=== PATIENT | male | born 1970 | race Caucasian/White ===

== ENCOUNTER → 2016-10-14 | Outpatient (CLI) | payer OTHER ==
[~2016-10-14] MED LIST: LASIX40 MG PO; POTASSIUM CHLO20 ME3 PO
== END | disposition home or self-care (01) ==
LOC: CARD 02:32
DX: Z01.818 Encounter for other preprocedural examination (principal); E66.01 Morbid (severe) obesity due to excess calories; E06.0 Acute thyroiditis; Z82.49 Family history of ischemic heart disease and other diseases of the circulatory system; R94.31 Abnormal electrocardiogram [ECG] [EKG]

== ENCOUNTER → 2017-08-17 | Outpatient (CLI) | payer OTHER ==
--- NOTE | ~2017-08-17 | HM ---
[place], [place] HOLTER MONITOR REPORT NAME: MEREDITH ALMODOVAR UNIT #: [id number] ROOM: DOCTOR: [facility],THADDEUS BIRTHDATE: [birth year] DOS: 08/18/2017 FINDINGS: 1. Sinus. 2. No extreme tachy-bradycardia. 3. Frequent PVCs. 4. Occasionally ____. 5. Ventricular bigeminy and ventricular trigeminy. No sustained/nonsustained ventricular tachycardia noted. No conduction abnormalities noted. No extreme bradycardia noted. Fairly benign symptoms persist. Consideration may be given adjusting the beta-blocking agent. And to avoid the stimulants alcohol, tobacco, caffeine, and chocolates. THADDEUS VAZQUEZ MD CM:HOLTER:HOLTER MONITOR REPORT [id number] THADDEUS VAZQUEZ MD [facility]
[2017-08-17 09:56] LABS: BASO # 0.1 10*3/uL (0.0-0.1); BASO % 0.8 % (0.0-1.0); EOS # 0.3 10*3/uL (0.0-0.4); HEMATOCRIT 49.4 % (42.0-52.0); HEMOGLOBIN 16.7 g/dl (14.0-18.0); MEAN CELL VOLUME 92.7 fl (80.0-94.0); MEAN CORPUSCULAR HGB 31.3 pg (27.0-31.0); MEAN CORPUSCULAR HGB CONC 33.8 g/dl (33.0-37.0); MEAN PLATELET VOLUME 10.1 fl (9.6-12.3); MONO # 0.7 10*3/uL (0.1-1.0); MONO % 7.1 % (3.0-9.0); NEUT # 6.1 10*3/uL (2.3-7.9); NEUT % 59.7 % (47.0-73.0); PLATELET COUNT AUTOMATED 245 10*3/uL (130-400); RED BLOOD COUNT 5.33 10*6/uL (4.50-5.90); RED CELL DISTRI WIDTH 14.1 % (0-14.5); WHITE BLOOD COUNT 10.3 10*3/uL (4.8-10.8)
[2017-08-17 10:28] LABS: BUN 11 mg/dl (7-24); CHLORIDE 101 mmol/L (98-107); CREATININE 1.07 mg/dL (0.70-1.30); POTASSIUM 3.7 mmol/L (3.5-5.1); SODIUM 136 mmol/L (136-145)
== END | disposition home or self-care (01) ==
LOC: CARD 08-15 09:30 → LAB 09:03 → CARD 09:30
PROVIDERS: Internal Medicine Cardiovascular Disease
DX: R00.1 Bradycardia, unspecified (principal)

== ENCOUNTER 2021-05-01 07:28 | Emergency (ER) | payer OTHER ==
[~2021-05-01] VITALS: Ht 180.3 cm; Wt 154.2 kg
[2021-05-01 08:21] VITALS: BP 160/86
[2021-05-01 08:54] LABS: BASO % 0.5 % (0.0-1.0); EOS % 0.3 % (1.0-4.0); HEMATOCRIT 43.6 % (42.0-52.0); LYMPH # 0.8 10*3/uL (1.3-4.4); LYMPH % 12.1 % (27.0-41.0); MEAN CELL VOLUME 87.9 fl (80.0-94.0); MEAN CORPUSCULAR HGB 30.2 pg (27.0-31.0); MEAN CORPUSCULAR HGB CONC 34.4 g/dl (33.0-37.0); MONO # 0.8 10*3/uL (0.1-1.0); MONO % 12.5 % (3.0-9.0); NEUT # 4.9 10*3/uL (2.3-7.9); PLATELET COUNT AUTOMATED 200 10*3/uL (130-400); RED BLOOD COUNT 4.96 10*6/uL (4.50-5.90); RED CELL DISTRI WIDTH 13.9 % (0-14.5); WHITE BLOOD COUNT 6.6 10*3/uL (4.8-10.8)
[2021-05-01 09:10] LABS: ALBUMIN 3.2 gm/dl (3.1-4.5); ALKALINE PHOSPHATASE 93 U/L (45-117); BUN 7 mg/dl (7-24); CHLORIDE 104 mmol/L (98-107); CREATININE 0.75 mg/dL (0.70-1.30); LIPASE 30 U/L (73-393); POTASSIUM 3.5 mmol/L (3.5-5.1); SGOT/AST 21 IU/L (3-35); SGPT/ALT 26 U/L (12-78); SODIUM 137 mmol/L (136-145); TOTAL PROTEIN 7.8 gm/dL (6.4-8.2)
[2021-05-01 09:15] LABS: TROPONIN I < 0.015 ng/ml (<0.045)
[2021-05-01] MEDS ORDERED: TYLENOL EXTRA500 MG PO (12:09)
[2021-05-01] MEDS ORDERED: CYCLOBENZAPRINE5 M3 PO (12:09)
== END 2021-05-01 12:16 | disposition home or self-care (01) ==
LOC: ED 07:28
PROVIDERS: Internal Medicine
DX: R07.9 Chest pain, unspecified (principal)

== ENCOUNTER → 2021-08-25 | Outpatient (CLI) | payer OTHER ==
[~2021-08-25] MED LIST changes: +CYCLOBENZAPRINE5 M3 PO; +TYLENOL EXTRA500 MG PO
== END | disposition home or self-care (01) ==
LOC: RAD 10:32
PROVIDERS: ATTEND Nurse Practitioner Family
DX: I44.4 Left anterior fascicular block (principal); E66.9 Obesity, unspecified; I10 Essential (primary) hypertension; R60.9 Edema, unspecified; Z82.49 Family history of ischemic heart disease and other diseases of the circulatory system

== ENCOUNTER → 2021-09-10 | Outpatient (CLI) | payer OTHER | END | disposition home or self-care (01) | LOC: CT 02:18 | PROVIDERS: ATTEND Nurse Practitioner Family | DX: J43.9 Emphysema, unspecified (principal); R91.8 Other nonspecific abnormal finding of lung field; R94.31 Abnormal electrocardiogram [ECG] [EKG]; R50.9 Fever, unspecified; R93.89 Abnormal findings on diagnostic imaging of other specified body structures; I25.10 Atherosclerotic heart disease of native coronary artery without angina pectoris; I11.9 Hypertensive heart disease without heart failure ==

== ENCOUNTER → 2021-09-28 | Outpatient (CLI) | payer OTHER | END | disposition home or self-care (01) | LOC: CARD 00:06 | PROVIDERS: ATTEND Internal Medicine Cardiovascular Disease | DX: I49.3 Ventricular premature depolarization (principal); R06.00 Dyspnea, unspecified ==

== ENCOUNTER 2022-06-02 15:02 | Emergency (ER) | payer OTHER ==
[~2022-06-02] VITALS: Ht 180.3 cm; Wt 197.8 kg
[2022-06-02 15:27] VITALS: BP 169/68
[2022-06-02 16:14] LABS: BASO # 0.1 10*3/uL (0.0-0.1); BASO % 0.5 % (0.0-1.0); EOS # 0.1 10*3/uL (0.0-0.4); EOS % 0.7 % (1.0-4.0); HEMATOCRIT 42.9 % (42.0-52.0); LYMPH # 1.2 10*3/uL (1.3-4.4); LYMPH % 11.5 % (27.0-41.0); MEAN CELL VOLUME 91.1 fl (80.0-94.0); MEAN CORPUSCULAR HGB 30.8 pg (27.0-31.0); MEAN CORPUSCULAR HGB CONC 33.8 g/dl (33.0-37.0); MONO # 1.1 10*3/uL (0.1-1.0); MONO % 10.1 % (3.0-9.0); NEUT # 8.2 10*3/uL (2.3-7.9); NEUT % 76.9 % (47.0-73.0); PLATELET COUNT AUTOMATED 272 10*3/uL (130-400); RED BLOOD COUNT 4.71 10*6/uL (4.50-5.90); RED CELL DISTRI WIDTH 14.6 % (0-14.5); WHITE BLOOD COUNT 10.7 10*3/uL (4.8-10.8)
[2022-06-02 16:32] LABS: ALKALINE PHOSPHATASE 76 U/L (46-116); BUN 9 mg/dl (9-23); CHLORIDE 104 mmol/L (98-107); CREATININE 0.64 mg/dL (0.70-1.30); SODIUM 135 mmol/L (136-145); TOTAL PROTEIN 7.4 gm/dL (6.0-8.0); URIC ACID 7.3 mg/dL (3.1-9.2)
[2022-06-02 16:52] LABS: SGPT/ALT 15 U/L (10-49)
[2022-06-02] MEDS ORDERED: HYDROCODONE-AC1 EAC1 PO (21:58)
== END 2022-06-02 22:12 | disposition home or self-care (01) ==
LOC: ED 15:02
PROVIDERS: Nurse Practitioner Family
DX: M25.461 Effusion, right knee (principal); R60.0 Localized edema

== ENCOUNTER → 2023-04-11 | Outpatient (CLI) | payer OTHER ==
[~2023-04-11] MED LIST changes: +DIGOXIN125 MCG PO; +ELIQUIS5 M1 PO; +HYDROCODONE-AC1 EAC1 PO; +KLOR-CON M2020 ME1 PO; +LISINOPRIL5 MG PO; +METOPROLOL TART50 M1 PO; +PAROXETINE HCL20 MG PO; +PREDNISONE10 MG PO; +SYMB160 INH; +VENT7GM INH; +VITAMIN D350 MCG PO; +Vitamin D (50,000 UN PO
[2023-04-11 15:10] LABS: BUN 15 mg/dl (9-23); CHLORIDE 105 mmol/L (98-107); POTASSIUM 3.2 mmol/L (3.4-5.1); URIC ACID 4.6 mg/dL (3.7-9.2)
== END | disposition home or self-care (01) ==
LOC: RESCLI 13:09
PROVIDERS: Internal Medicine; ATTEND Internal Medicine
DX: I50.20 Unspecified systolic (congestive) heart failure (principal); M1A.0710 Idiopathic chronic gout, right ankle and foot, without tophus (tophi)

== ENCOUNTER 2023-11-07 06:23 | Inpatient (IN) | payer OTHER ==
[~2023-11-07] VITALS: Ht 180.3 cm; Wt 194.6 kg
[2023-11-07] VITALS (8 sets, daily range): BP systolic 114–146; BP diastolic 65–101
[2023-11-07] MEDS ORDERED: BUMETANIDE 1 MG/4 ML VIAL IV ONE (06:45)
[2023-11-07] MEDS ORDERED: methylPREDNISolone sod succ 125 MG VIAL IV ONE (06:45)
[2023-11-07] MEDS ORDERED: Diltiazem Hydrochloride 25 MG/5 ML VIAL IV ONE (06:45)
[2023-11-07 06:49] LABS: BASO # 0.1 10*3/uL (0.0-0.1); BASO % 0.7 % (0.0-1.0); EOS # 0.1 10*3/uL (0.0-0.4); EOS % 1.2 % (1.0-4.0); HEMATOCRIT 39.7 % (42.0-52.0); LYMPH # 0.8 10*3/uL (1.3-4.4); LYMPH % 11.1 % (27.0-41.0); MEAN CELL VOLUME 95.9 fl (80.0-94.0); MEAN CORPUSCULAR HGB 31.9 pg (27.0-31.0); MEAN CORPUSCULAR HGB CONC 33.2 g/dl (33.0-37.0); MEAN PLATELET VOLUME 9.4 fl (9.6-12.3); MONO # 0.6 10*3/uL (0.1-1.0); MONO % 7.3 % (3.0-9.0); NEUT % 79.3 % (47.0-73.0); PLATELET COUNT AUTOMATED 166 10*3/uL (130-400); RED BLOOD COUNT 4.14 10*6/uL (4.50-5.90); RED CELL DISTRI WIDTH 18.2 % (0-14.5); WHITE BLOOD COUNT 7.5 10*3/uL (4.8-10.8)
[2023-11-07 07:16] LABS: ALKALINE PHOSPHATASE 98 U/L (46-116); BUN 5 mg/dl (9-23); CHLORIDE 101 mmol/L (98-107); POTASSIUM 2.9 mmol/L (3.4-5.1); SGPT/ALT 31 U/L (5-49); TOTAL PROTEIN 6.4 gm/dL (6.0-8.0)
[2023-11-07] MEDS ORDERED: Diltiazem Hydrochloride 125 ML IV SCH (08:00)
[2023-11-07] MEDS ORDERED: MAGNESIUM SULFATE 100 ML IV ONE (08:15)
[2023-11-07] MEDS ORDERED: POTASSIUM CHLORIDE IN WATER 100 ML IV SCH (09:00)
[2023-11-07] MEDS ORDERED: ACETAMINOPHEN 650 MG SUPP R PRN (10:35)
[2023-11-07] MEDS ORDERED: BISACODYL 10 MG SUPP R PRN (10:35)
[2023-11-07] MEDS ORDERED: Magnesium Hydroxide 30 ML UDC PO PRN (10:35)
[2023-11-07] MEDS ORDERED: Ondansetron Hydrochloride 4 MG/2 ML VIAL IV PRN (10:35)
[2023-11-07] MEDS ORDERED: ACETAMINOPHEN 325 MG TAB PO PRN (10:35)
[2023-11-07] MEDS ORDERED: BISACODYL 5 MG TAB PO PRN (10:35)
[2023-11-07] MEDS ORDERED: ALDACTONE25 MG PO (11:04)
[2023-11-07] MEDS ORDERED: Albuterol Sulf/Ipratropium 3 ML VIAL NEB PRN (11:25)
[2023-11-07] MEDS ORDERED: Albuterol Sulfate 2.5 MG/3 ML VIAL NEB SCH (11:40)
[2023-11-07] MEDS ORDERED: BUDESONIDE 0.5 MG AMP NEB SCH (11:40)
[2023-11-07] MEDS ORDERED: DIGOXIN 125 MCG TAB PO SCH (14:00)
[2023-11-07] MEDS ORDERED: FUROSEMIDE 40 MG/4 ML VIAL IV SCH (18:00)
[2023-11-07] MEDS ORDERED: APIXABAN 5 MG TAB PO SCH (22:00)
[2023-11-07] MEDS ORDERED: Budesonide/Formoterol Fumarate 160/4.5 inhaler INH SCH (22:00)
[2023-11-07] MEDS ORDERED: Metoprolol Tartrate 50 MG TAB PO SCH (22:00)
[2023-11-07] MEDS ORDERED: Nicotine 21 MG PATCH T SCH (22:40)
[2023-11-08] VITALS (9 sets, daily range): BP systolic 113–134; BP diastolic 74–90
[2023-11-08 06:28] LABS: HEMATOCRIT 37.7 % (42.0-52.0); LYMPH # 0.7 10*3/uL (1.3-4.4); MEAN CELL VOLUME 98.4 fl (80.0-94.0); MEAN CORPUSCULAR HGB 31.6 pg (27.0-31.0); MEAN CORPUSCULAR HGB CONC 32.1 g/dl (33.0-37.0); MEAN PLATELET VOLUME 9.4 fl (9.6-12.3); MONO # 0.9 10*3/uL (0.1-1.0); MONO % 9.4 % (3.0-9.0); NEUT # 7.8 10*3/uL (2.3-7.9); NEUT % 83.1 % (47.0-73.0); NUCLEATED RED BLOOD CELL 0.4 % (0.0-0.0); PLATELET COUNT AUTOMATED 150 10*3/uL (130-400); RED BLOOD COUNT 3.83 10*6/uL (4.50-5.90); RED CELL DISTRI WIDTH 18.8 % (0-14.5); WHITE BLOOD COUNT 9.4 10*3/uL (4.8-10.8)
[2023-11-08 07:16] LABS: ALKALINE PHOSPHATASE 97 U/L (46-116); BUN 12 mg/dl (9-23); CHLORIDE 95 mmol/L (98-107); CHOLESTEROL 129 mg/dL (<200); LDL CHOLESTEROL 77 mg/dL (9-159); POTASSIUM 3.6 mmol/L (3.4-5.1); SGPT/ALT 28 U/L (5-49); TOTAL PROTEIN 6.9 gm/dL (6.0-8.0); TRIGLYCERIDES 71 mg/dl (<150)
[2023-11-08] MEDS ORDERED: LISINOPRIL 5 MG TAB PO SCH (10:00)
[2023-11-08] MEDS ORDERED: GUAIFENESIN 600 MG TAB ER PO SCH (10:00)
[2023-11-08] MEDS ORDERED: Cholecalciferol 2,000 UNIT TABLET (50 MCG) PO SCH (10:00)
[2023-11-08] MEDS ORDERED: SPIRONOLACTONE 25 MG TAB PO SCH (10:00)
[2023-11-08] MEDS ORDERED: EMPAGLIFLOZIN 10 MG TABLET PO SCH (10:00)
[2023-11-08] MEDS ORDERED: PERFLUTREN PROTEIN-A MICROSPHR 3 ML VIAL IV ONE (14:08)
[2023-11-08] MEDS ORDERED: Melatonin 5 MG TABLET PO PRN (20:55)
[2023-11-09] VITALS: BP 115/62
[2023-11-09 05:08] VITALS: BP 109/66
[2023-11-09 06:52] LABS: BASO % 0.3 % (0.0-1.0); EOS # 0.1 10*3/uL (0.0-0.4); EOS % 0.9 % (1.0-4.0); HEMATOCRIT 38.5 % (42.0-52.0); LYMPH # 1.5 10*3/uL (1.3-4.4); LYMPH % 18.8 % (27.0-41.0); MEAN CELL VOLUME 98.5 fl (80.0-94.0); MEAN CORPUSCULAR HGB CONC 32.5 g/dl (33.0-37.0); MEAN PLATELET VOLUME 9.8 fl (9.6-12.3); MONO # 0.6 10*3/uL (0.1-1.0); MONO % 8.1 % (3.0-9.0); NEUT # 5.6 10*3/uL (2.3-7.9); NEUT % 71.4 % (47.0-73.0); NUCLEATED RED BLOOD CELL 0.4 % (0.0-0.0); PLATELET COUNT AUTOMATED 139 10*3/uL (130-400); RED BLOOD COUNT 3.91 10*6/uL (4.50-5.90); RED CELL DISTRI WIDTH 19.3 % (0-14.5); WHITE BLOOD COUNT 7.9 10*3/uL (4.8-10.8)
[2023-11-09 07:26] LABS: ALKALINE PHOSPHATASE 89 U/L (46-116); BUN 16 mg/dl (9-23); CHLORIDE 96 mmol/L (98-107); POTASSIUM 3.5 mmol/L (3.4-5.1); SGPT/ALT 38 U/L (5-49); TOTAL PROTEIN 6.8 gm/dL (6.0-8.0)
[2023-11-09 08:00] VITALS: BP 103/59
[2023-11-09] MEDS ORDERED: POTASSIUM CHLORIDE 20 MEQ TAB PO SCH (10:00)
[2023-11-09 12:00] VITALS: BP 116/71
[2023-11-09 16:00] VITALS: BP 105/83
[2023-11-09 20:00] VITALS: BP 105/66
[2023-11-09] MEDS ORDERED: methylPREDNISolone sod succ 40 MG VIAL IV SCH (22:00)
[2023-11-10] VITALS: BP 110/62
[2023-11-10 06:43] LABS: ALKALINE PHOSPHATASE 100 U/L (46-116); BUN 17 mg/dl (9-23); CHLORIDE 94 mmol/L (98-107); POTASSIUM 4.2 mmol/L (3.4-5.1); SGPT/ALT 65 U/L (5-49); TOTAL PROTEIN 7.5 gm/dL (6.0-8.0)
[2023-11-10 08:00] VITALS: BP 106/82
[2023-11-10 12:00] VITALS: BP 126/72
[2023-11-10 16:00] VITALS: BP 122/60
[2023-11-10 20:00] VITALS: BP 127/81
[2023-11-11] VITALS: BP 142/93
[2023-11-11 05:36] LABS: ALKALINE PHOSPHATASE 86 U/L (46-116); BUN 20 mg/dl (9-23); CHLORIDE 98 mmol/L (98-107); POTASSIUM 4.5 mmol/L (3.4-5.1); SGPT/ALT 52 U/L (5-49)
[2023-11-11 08:00] VITALS: BP 134/92
[2023-11-11 12:00] VITALS: BP 114/69
[2023-11-11 16:00] VITALS: BP 136/82
[2023-11-11 20:00] VITALS: BP 137/82
[2023-11-12] VITALS: BP 113/73
[2023-11-12 04:06] LABS: AFP TUMOR MARKER 2.5 ng/mL (0.0-8.4)
[2023-11-12 05:07] LABS: IMMUNOGLOBULIN G, QNT 1168 mg/dL (603-1613)
[2023-11-12 06:25] LABS: BUN 24 mg/dl (9-23); CHLORIDE 97 mmol/L (98-107); POTASSIUM 4.5 mmol/L (3.4-5.1)
[2023-11-12 08:00] VITALS: BP 128/61
[2023-11-12 08:09] LABS: HBSAG Negative (Negative); HEP B CORE AB, IGM Negative (Negative); HEPATITIS C ANTIBODY Non Reactive (Non Reactive)
[2023-11-12 12:00] VITALS: BP 130/83
[2023-11-12 14:09] LABS: ANTI-SMOOTH MUSCLE ANTIBODY 15 Units (0-19)
[2023-11-12 16:00] VITALS: BP 138/86
[2023-11-12 20:00] VITALS: BP 112/61
[2023-11-13] VITALS: BP 114/64
[2023-11-13 07:37] LABS: BUN 23 mg/dl (9-23); CHLORIDE 97 mmol/L (98-107); POTASSIUM 4.5 mmol/L (3.4-5.1)
[2023-11-13 08:00] VITALS: BP 118/84
[2023-11-13 12:00] VITALS: BP 117/76
[2023-11-13 16:00] VITALS: BP 118/86
[2023-11-13 20:00] VITALS: BP 128/80; BP 129/92
[2023-11-14] VITALS: BP 110/80; BP 110/92
[2023-11-14 05:59] LABS: BUN 23 mg/dl (9-23); CHLORIDE 98 mmol/L (98-107)
[2023-11-14 08:00] VITALS: BP 108/72
[2023-11-14 12:00] VITALS: BP 103/54
[2023-11-14 16:00] VITALS: BP 112/69; BP 133/63
[2023-11-14 20:00] VITALS: BP 116/72
[2023-11-15] VITALS: BP 113/77
[2023-11-15 07:08] LABS: BASO % 0.1 % (0.0-1.0); HEMATOCRIT 49.7 % (42.0-52.0); LYMPH # 0.7 10*3/uL (1.3-4.4); LYMPH % 6.3 % (27.0-41.0); MEAN CELL VOLUME 98.2 fl (80.0-94.0); MEAN CORPUSCULAR HGB CONC 32.6 g/dl (33.0-37.0); MEAN PLATELET VOLUME 9.5 fl (9.6-12.3); MONO # 1.2 10*3/uL (0.1-1.0); MONO % 10.4 % (3.0-9.0); NEUT # 9.2 10*3/uL (2.3-7.9); NEUT % 82.2 % (47.0-73.0); PLATELET COUNT AUTOMATED 350 10*3/uL (130-400); RED BLOOD COUNT 5.06 10*6/uL (4.50-5.90); RED CELL DISTRI WIDTH 18.6 % (0-14.5); WHITE BLOOD COUNT 11.2 10*3/uL (4.8-10.8)
[2023-11-15 07:37] LABS: CHLORIDE 97 mmol/L (98-107); POTASSIUM 4.6 mmol/L (3.4-5.1)
[2023-11-15 07:39] LABS: BUN 33 mg/dl (9-23)
[2023-11-15 08:00] VITALS: BP 108/71
[2023-11-15 12:00] VITALS: BP 100/70
[2023-11-15 16:00] VITALS: BP 113/87
[2023-11-15 20:00] VITALS: BP 109/71
[2023-11-16] VITALS: BP 118/50
[2023-11-16 06:39] LABS: BASO % 0.2 % (0.0-1.0); HEMATOCRIT 48.8 % (42.0-52.0); LYMPH # 0.8 10*3/uL (1.3-4.4); LYMPH % 6.9 % (27.0-41.0); MEAN CELL VOLUME 98.2 fl (80.0-94.0); MEAN CORPUSCULAR HGB CONC 32.6 g/dl (33.0-37.0); MEAN PLATELET VOLUME 9.3 fl (9.6-12.3); MONO % 8.7 % (3.0-9.0); NEUT # 9.4 10*3/uL (2.3-7.9); NEUT % 83.4 % (47.0-73.0); PLATELET COUNT AUTOMATED 356 10*3/uL (130-400); RED BLOOD COUNT 4.97 10*6/uL (4.50-5.90); RED CELL DISTRI WIDTH 18.2 % (0-14.5); WHITE BLOOD COUNT 11.2 10*3/uL (4.8-10.8)
[2023-11-16 06:42] LABS: BUN 32 mg/dl (9-23); CHLORIDE 96 mmol/L (98-107); POTASSIUM 4.9 mmol/L (3.4-5.1)
[2023-11-16 08:00] VITALS: BP 104/64
[2023-11-16 12:00] VITALS: BP 121/66
[2023-11-16 16:00] VITALS: BP 113/84
[2023-11-16 20:00] VITALS: BP 105/71
[2023-11-17] VITALS: BP 131/70
[2023-11-17 06:45] LABS: BASO % 0.2 % (0.0-1.0); EOS # 0.1 10*3/uL (0.0-0.4); EOS % 0.4 % (1.0-4.0); HEMATOCRIT 50.3 % (42.0-52.0); LYMPH # 2.4 10*3/uL (1.3-4.4); LYMPH % 17.3 % (27.0-41.0); MEAN CELL VOLUME 95.6 fl (80.0-94.0); MEAN CORPUSCULAR HGB 32.1 pg (27.0-31.0); MEAN CORPUSCULAR HGB CONC 33.6 g/dl (33.0-37.0); MEAN PLATELET VOLUME 9.7 fl (9.6-12.3); MONO # 1.4 10*3/uL (0.1-1.0); MONO % 10.2 % (3.0-9.0); NEUT # 9.8 10*3/uL (2.3-7.9); NEUT % 70.7 % (47.0-73.0); PLATELET COUNT AUTOMATED 385 10*3/uL (130-400); RED BLOOD COUNT 5.26 10*6/uL (4.50-5.90); RED CELL DISTRI WIDTH 18.3 % (0-14.5); WHITE BLOOD COUNT 13.8 10*3/uL (4.8-10.8)
[2023-11-17 07:40] LABS: BUN 32 mg/dl (9-23); CHLORIDE 95 mmol/L (98-107); POTASSIUM 4.4 mmol/L (3.4-5.1)
[2023-11-17 08:00] VITALS: BP 106/64
[2023-11-17] MEDS ORDERED: methylPREDNISolone sod succ 40 MG VIAL IV SCH (10:00)
[2023-11-17 12:00] VITALS: BP 102/74
[2023-11-17 16:00] VITALS: BP 107/72
[2023-11-17 20:00] VITALS: BP 106/66; BP 98/65
[2023-11-18] VITALS: BP 97/75
[2023-11-18 07:09] LABS: BUN 30 mg/dl (9-23); CHLORIDE 97 mmol/L (98-107); POTASSIUM 4.7 mmol/L (3.4-5.1)
[2023-11-18 08:00] VITALS: BP 125/59
[2023-11-18 12:00] VITALS: BP 90/50
[2023-11-18 15:59] VITALS: BP 110/77
[2023-11-18 20:00] VITALS: BP 115/58
[2023-11-19] VITALS (8 sets, daily range): BP systolic 86–133; BP diastolic 58–94
[2023-11-19 05:03] LABS: BUN 37 mg/dl (9-23); CHLORIDE 96 mmol/L (98-107); POTASSIUM 4.9 mmol/L (3.4-5.1)
[2023-11-19 06:02] LABS: BASO % 0.1 % (0.0-1.0); EOS % 0.1 % (1.0-4.0); HEMATOCRIT 49.9 % (42.0-52.0); LYMPH # 1.8 10*3/uL (1.3-4.4); LYMPH % 10.8 % (27.0-41.0); MEAN CELL VOLUME 97.1 fl (80.0-94.0); MEAN CORPUSCULAR HGB 31.9 pg (27.0-31.0); MEAN CORPUSCULAR HGB CONC 32.9 g/dl (33.0-37.0); MEAN PLATELET VOLUME 9.4 fl (9.6-12.3); MONO # 1.1 10*3/uL (0.1-1.0); MONO % 6.8 % (3.0-9.0); NEUT # 13.4 10*3/uL (2.3-7.9); NEUT % 81.2 % (47.0-73.0); PLATELET COUNT AUTOMATED 460 10*3/uL (130-400); RED BLOOD COUNT 5.14 10*6/uL (4.50-5.90); RED CELL DISTRI WIDTH 18.3 % (0-14.5); WHITE BLOOD COUNT 16.6 10*3/uL (4.8-10.8)
[2023-11-19] MEDS ORDERED: SODIUM CHLORIDE 0.9% 500 ML IV ONE (21:00)
[2023-11-20] VITALS: BP 129/73
[2023-11-20 05:14] LABS: BUN 37 mg/dl (9-23); CHLORIDE 97 mmol/L (98-107); POTASSIUM 4.9 mmol/L (3.4-5.1)
[2023-11-20 06:12] LABS: BASO % 0.2 % (0.0-1.0); EOS # 0.1 10*3/uL (0.0-0.4); EOS % 0.3 % (1.0-4.0); HEMATOCRIT 48.1 % (42.0-52.0); LYMPH # 2.5 10*3/uL (1.3-4.4); LYMPH % 15.3 % (27.0-41.0); MEAN CELL VOLUME 99.2 fl (80.0-94.0); MEAN CORPUSCULAR HGB 31.5 pg (27.0-31.0); MEAN CORPUSCULAR HGB CONC 31.8 g/dl (33.0-37.0); MEAN PLATELET VOLUME 9.5 fl (9.6-12.3); MONO # 1.5 10*3/uL (0.1-1.0); MONO % 9.1 % (3.0-9.0); NEUT % 74.2 % (47.0-73.0); PLATELET COUNT AUTOMATED 438 10*3/uL (130-400); RED BLOOD COUNT 4.85 10*6/uL (4.50-5.90); RED CELL DISTRI WIDTH 17.8 % (0-14.5); WHITE BLOOD COUNT 16.1 10*3/uL (4.8-10.8)
[2023-11-20 08:00] VITALS: BP 105/76
[2023-11-20 09:53] VITALS: BP 122/64
[2023-11-20 12:00] VITALS: BP 100/51
[2023-11-20] MEDS ORDERED: LASIX40 MG PO (12:13)
[2023-11-20] MEDS ORDERED: PREDNISONE10 MG PO (12:13)
[2023-11-20] MEDS ORDERED: JARDIANCE10 MG PO (12:13)
== END 2023-11-20 14:15 | disposition home or self-care (01) | DRG 194 ==
LOC: ED 06:23 → EDHOLD 09:20 → 4E 09:20 → EDHOLD 09:21 → 4E 10:40
PROVIDERS: Internal Medicine; Student in an Organized Health Care Education/Training Program; ADMIT Internal Medicine; ATTEND Internal Medicine
DX: I11.0 Hypertensive heart disease with heart failure (principal); I50.23 Acute on chronic systolic (congestive) heart failure; J43.8 Other emphysema; E87.6 Hypokalemia; K76.0 Fatty (change of) liver, not elsewhere classified; J44.9 Chronic obstructive pulmonary disease, unspecified; R74.01 Elevation of levels of liver transaminase levels; E80.6 Other disorders of bilirubin metabolism; D64.9 Anemia, unspecified; R73.9 Hyperglycemia, unspecified; E78.1 Pure hyperglyceridemia; E55.9 Vitamin D deficiency, unspecified; I48.20 Chronic atrial fibrillation, unspecified; F17.210 Nicotine dependence, cigarettes, uncomplicated; Z71.6 Tobacco abuse counseling; Z82.49 Family history of ischemic heart disease and other diseases of the circulatory system; Z83.3 Family history of diabetes mellitus